=== PATIENT | female | born 1980 | race Caucasian/White ===

== ENCOUNTER → 2018-01-27 12:05 | Outpatient (CLI) | payer MEDICAID | END | disposition home or self-care (01) | LOC: D.CT 12:05 | DX: R10.9 Unspecified abdominal pain (principal) ==

== ENCOUNTER → 2018-11-10 10:49 | Outpatient (CLI) | payer MEDICAID ==
--- NOTE | 2018-11-14 12:04 | EC ---
PATIENT:DOMINGUEZ SMITH DATE OF SERVICE: 11/10/18 SEX: F MEDICAL RECORD: [id number] DATE OF : [birth year] LOCATION:[facility] AGE OF PATIENT: 38 ADMISSION DATE: 11/10/18 REFERRING PHYSICIAN: INTERPRETING PHYSICIAN: JESSICA HOLLEY MD ECHOCARDIOGRAM REPORT ECHO CHARGES 4 ECHO COMPLETE Date: 11/10/18 CLINICAL DIAGNOSIS: SYNCOPE ECHOCARDIOGRAPHIC MEASUREMENTS (adult normal given) AC root (d.<3.7cm) 2.7 cm LV Septum d (<1.2 cm> 1.3 cm Valve Excursion 1.4 cm LV Septum (systole) 1.6 cm Left Atria (s.<4.0cm> 3.3 cm LVPW d(<1.2cm) 1.5 cm RV (d.<2.3cm) 2.6 cm LVPW (sytole) 1.7 cm LV diastole(<5.6CM) 4.0 cm MV E-F(>70mm/sec) cm LV systole 2.3 cm LVOT Diameter 1.6 cm MV exc.(>10mm) 1.8 cm Est.ejection fraction (50-75%) % DOPPLER: LVIT cm/sec A 66.0 cm/sec E 77.0 cm/sec LA cm/sec RVSP 18 mmHg LVOT 91 cm/sec AOP1/2T m/s Asc. Ao 99 cm/sec RVOT 120 cm/sec RA cm/sec PA 132 cm/sec AV Gradient Peak 3.89 mmHg AV Mean 1.78 mmHg AV Area 2.3 cm MV Gradient Peak 3.30 mmHg MV Mean 1.64 mmHg MV Area cm COMMENTS: Biology Adjunct Instructor: Bruno COLEY Order Booker: 1 Dr. Holley TAPE# PACS Pericardial Effusion N DATE OF SERVICE: 11/10/2018 PROCEDURE: Echocardiogram. FINDINGS: 1. Left ventricular chamber size is within normal limits. Left ventricular systolic function is normal at 65% to 70%. 2. Left atrium, right atrium, and right ventricular chamber sizes are within normal limits. 3. Valvular structures have normal structure and motion. ECHOCARDIOGRAM REPORT [id number] DOMINGUEZ SMITH 4. Doppler interrogation only reveals trace to mild mitral regurgitation, no other valvular insufficiency or stenosis. 5. No evidence of pericardial effusion or left ventricular thrombus. TRANSINT:[id number] Voice Confirmation ID: [id number] DOCUMENT ID: [id number] JESSICA HOLLEY MD at 1204 CC: [id number] DICTATION DATE: 11/13/18 1141 DATA ANALYSIS INTERN: 11/13/18 1155 DEP CLI 11/10/18 [place] [id number] [place] [id number]
== END | disposition home or self-care (01) ==
LOC: D.HCCARDIO 10:30
PROVIDERS: ATTEND Internal Medicine Interventional Cardiology
DX: R55 Syncope and collapse (principal)

== ENCOUNTER → 2019-11-16 12:20 | Outpatient (CLI) | payer MEDICAID | END | disposition home or self-care (01) | LOC: D.MRI 11-15 11:00 | PROVIDERS: ATTEND Clinical Nurse Specialist Adult Health | DX: R56.9 Unspecified convulsions (principal) ==

== ENCOUNTER 2020-06-02 14:30 | Outpatient (CLI) | payer MEDICAID | END 2020-06-02 23:59 | disposition home or self-care (01) | LOC: D.MAMMO 14:30 | PROVIDERS: ATTEND Clinical Nurse Specialist Adult Health | DX: Z12.31 Encounter for screening mammogram for malignant neoplasm of breast (principal) ==